=== PATIENT | male | born 1955 | race Caucasian/White ===

== ENCOUNTER 2021-10-02 21:12 | Emergency (ER) | payer MEDICARE, MEDICAID ==
[~2021-10-02] VITALS: Ht 177.8 cm; Wt 65.5 kg
[2021-10-02 21:37] VITALS: BP 103/68
[2021-10-02 22:04] LABS: BASOPHILS # (AUTO) 0.1 X10'3 (0-0.2); BASOPHILS % (AUTO) 0.9 % (0-1)
[2021-10-02 22:05] LABS: EOSINOPHILS # (AUTO) 0.5 X10'3 (0-0.9); EOSINOPHILS % (AUTO) 6.2 % (0-6); HEMATOCRIT 30.3 % (42.0-52.0); HEMOGLOBIN 9.6 g/dl (14.0-17.9); LYMPHOCYTES # (AUTO) 1.6 X10'3 (1.1-4.8); LYMPHOCYTES % (AUTO) 20.3 % (21-51); MEAN CORPUSCULAR HEMOGLOBIN 27.4 PG (27.0-31.0); MEAN CORPUSCULAR HGB CONC 31.8 g/dL (33.0-36.5); MEAN CORPUSCULAR VOLUME 86.1 FL (78-98); MONOCYTES # (AUTO) 1.2 X10'3 (0-0.9); MONOCYTES % (AUTO) 14.9 % (2-12); NEUTROPHILS # (AUTO) 4.6 X10'3 (1.8-7.7); NEUTROPHILS % (AUTO) 57.7 % (42-75); PLATELET COUNT 318 X10'3 (140-440); RED BLOOD COUNT 3.52 X10'6 (4.70-6.10); RED CELL DISTRIBUTION WIDTH 18.5 % (11.5-14.5)
[2021-10-02 22:26] LABS: ALANINE AMINOTRANSFERASE 219 U/L (12-78); ALBUMIN 2.9 G/DL (3.4-5.0); ALBUMIN/GLOBULIN RATIO 0.6 (1.1-1.5); ALKALINE PHOSPHATASE 1700 IU/L (46-116); ANION GAP 16 (8-16); ASPARTATE AMINO TRANSFERASE 222 U/L (10-37); BILIRUBIN,TOTAL 3.5 MG/DL (0.1-1.0); BLOOD UREA NITROGEN 55 MG/DL (7-18); BUN/CREATININE RATIO 14.3 (5.4-32.0); CALCIUM 8.6 MG/DL (8.5-10.1); CHLORIDE 109 MMOL/L (99-107); CREATININE 3.85 MG/DL (0.60-1.10); GLUCOSE 100 MG/DL (70-104); LIPASE 158 U/L (73-393); POTASSIUM 3.8 MMOL/L (3.5-5.1); SODIUM 140 MMOL/L (135-145); TOTAL CARBON DIOXIDE 15.5 MMOL/L (24-32); TOTAL PROTEIN 7.9 G/DL (6.4-8.2); eGFR 16 ML/MIN
--- NOTE | 2021-10-03 00:08 | NUR ---
WENT IN TO ROUND ON PT. GOWN WAS ON BED AND MONITOR CABLES OFF. CHECKED BATHROOM AND ED LOBBY. PT ELOPED WITHOUT TELLING ED STAFF. HAD NOT SEEN PT.
== END 2021-10-03 00:11 | disposition left against medical advice (07) ==
LOC: ER 21:14
DX: D64.9 Anemia, unspecified (principal); Z53.21 Procedure and treatment not carried out due to patient leaving prior to being seen by health care provider
CPT/HCPCS: 80053; 83690; 85025